=== PATIENT | female | born 1970 | race Caucasian/White ===

== ENCOUNTER → 2019-10-15 13:42 | Outpatient (CLI) | payer OTHER, SELFPAY ==
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
== END ==
PROVIDERS: Family Provider Preventive Medicine Occupational Medicine; PCP Preventive Medicine Occupational Medicine; Referring Provider Obstetrics & Gynecology; Visit Provider Obstetrics & Gynecology
DX: Z12.31 Encounter for screening mammogram for malignant neoplasm of breast (principal)
CPT/HCPCS: 77063; 77067

== ENCOUNTER 2022-02-11 17:30 | Outpatient (RCR) | payer BC, SELFPAY ==
--- NOTE | 2022-01-07 18:43 | HP.PTEVAL_ITS ---
Patient's Visit Information CAT HERNANDEZ is a 51 year old F referred to Physical Therapy by Dr. Jorge Chapin DPM with a diagnosis of PAIN UNSPECIFIED ANKLE AND JOINT. Date of Evaluation: 01/07/22 Physical Therapist: Ted Chamberlain, PT, Cert MDT, OCS - Visit Plan Frequency: 2x /Week Duration: 4 Weeks Plan: PT INTERVETIONS STRENGTHENING ANKLD STABILZERS AND INSTRINCS ,FLEXABILITY/ROM ANKLE ,GRADED PROPRIOCEPTION AND MODALTIES PRN - Subjective This 51 y/o female presents to physical therapy with ankle sprain. Patient sprained ankle Oct 2021 beginning twisted on ice. Patient has immediate pain with edema ~ 1 month later . 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 Did several several x- rays showed old stress fractures and charcot foot . Patient also had severe sprain. Patient was placed in cam boot NWB with kneeling walker 2weeks . Patient then was placed in ankle brace. Patient conts to have edema and pain lateral ankle . Patient sleeps okay.Denies paresthesia/tingling .Pain described as ache. Patient typically walks lateral aspect of foot. Patient symptoms affects QOL and function along with gait . Patient has h/o falling has Tello rods in back sine 13 years old. SOCAIL: . VOCATION: Teacher. - Pain Left Back Pain Intensity (Out of 10): 5 Pain Intensity Range: 10 - Objective POSTURE: pes cavus WB lateral wide foot, hammer toes. GAIT: ambulates with antalgic gait left side with decrease stance time heel strike with WB lateral foot. NEURO: denies paresthesia/tingling. PALAPTION: ATFL,CFL. EDMA: trima llelor ankle 58.8 cm. AROM: dorsiflexion 5 degrees, eversion 5 degrees ,inversion 40 degrees. SPECIAL TEST: talar tilt +,inversion stress test. MMT (PEAK FORCE): anteriortibials 23.3 , posteriortibials 13.2, peroneus 8.6,G-S 23.3. PROPRIOCEPTION: poor unable SLS - Balance/Special Test Scores Lower Extremity Functional Score: 19 - Goals Goal 1:: Patient to be I with HEP for ankle Goal Time Frame: 4-6 Weeks Goal 2:: Patient to improve quality of gait with less antalgic gait 75% of the time Goal Time Frame: 4-6 Weeks Goal 3:: Patient to demonstrate 50 % improvement with decrease pain and improve function with gait Goal Time Frame: 4-6 Weeks Goal 4:: Patient improve strength ankle peak force by 5-10 to improve gait Goal Time Frame: 4-6 Weeks Goal 5:: Patient to improve LFES score by 5 points or > to improve gait and QOL. Goal Time Frame: 4-6 Weeks - Rehabilitation Potential Physical Therapy Diagnosis: Patient twisted ankle on ice in Oct along with h/.o stress fractures and beginning of charcot foot causing pain swelling difficulty to walk with decrease ROM ,strength ,proprioception with antalgic gait thus benefit from skilled to PT Rehabilitation Potential: Good - Anticipated Interventions Patient/Client Instruction: Educate patient on: Condition, Plan of Care For the Purpose of:: To decrease pain, To increase ROM, To improve muscle performance and motor function, To improve ability to perform ADL's, To increase tolerance to activity/condition/position, To improve ability of physical actions for home/community/work/leisure, To improve health of tissue, To decrease soft tissue restriction, To increase flexibility/ROM, To prevent re-injury Therapeutic Exercise to Include: Strength training, Endurance training, Balance training, Flexibilty training, Active ROM Comment: ANKLE For the Purpose of:: To decrease pain, To increase ROM, To improve muscle performance and motor function, To improve ability to perform ADL's, To increase tolerance to activity/condition/position, To improve performance and independence with ADL's, To improve ability of physical actions for home/community/work/leisure, To improve health of tissue, To decrease soft tissue restriction, To increase flexibility/ROM, To improve endurance, To improve balance TENS: Yes IF ES: Yes Cryotherapy (ice pack, ice massage): Yes Thermo therapy (hot pack): Yes Ultrasound (thermal/non thermal): Yes Vasopneumatic device: Yes For the Purpose of:: To decrease pain, To decrease swelling/inflammation, To improve nutrient delivery to tissue, To increase oxygenation perfusion, To improve health of tissue, To decrease soft tissue restriction Thank you for the opportunity to evaluate your patient. For Medicare and Medicare HMO plans, please review the plan of care and approve it. It will need to be FAXED BACK to us at [phone] for Medicare purposes. For Medicare only, by signing this I certify the plan of care. Please let me know if there are questions or concerns regarding this plan of care. Physician Signature: Date:
--- NOTE | 2022-02-11 18:02 | HP.PTDCSUM ---
It has been my pleasure to treat CAT HERNANDEZ referred by Dr. Jorge Chapin DPM, with the diagnosis of PAIN UNSPECIFIED ANKLE AND JOINT for a total of 8 visit(s). Discharge Date: 02/11/22 Please see the following information for a summary of their discharge status. 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 GAIT: IMPROVE LAURENCE AND STANCE TIME. AROM: ankle 4/5. AROM: DF 0 DEGREES,IN 30 degrees ,inversion 5 degrees, PF 60 degrees. PROPRIOCEPTION: improving 30sce SLS Goal 1:: Patient to be I with HEP for ankle Goal Progress: Goal Met Goal 2:: Patient to improve quality of gait with less antalgic gait 75% of the time Goal Progress: Goal Met Goal 3:: Patient to demonstrate 50 % improvement with decrease pain and improve function with gait Goal Progress: Goal Met Goal 4:: Patient improve strength ankle peak force by 5-10 to improve gait Goal Progress: Goal Met Goal 5:: Patient to improve LFES score by 5 points or > to improve gait and QOL. Goal Progress: Goal Met Plan: D/C to HEP If there are questions or concerns regarding this patient's physical therapy, please feel free to call me at [phone]. Thank you for the referral of this patient. Sincerely, Ted Chamberlain, PT, Cert MDT, OCS Balance/Gait/Functional tests - Balance/Special Test Scores Lower Extremity Functional Score: 60
== END 2022-02-11 19:00 | disposition home or self-care (01) ==
LOC: PT 17:30
PROVIDERS: PCP Preventive Medicine Occupational Medicine; Referring Provider Podiatrist; Visit Provider Podiatrist
DX: M25.572 Pain in left ankle and joints of left foot
CPT/HCPCS: 97110; 97161